=== PATIENT | male | born 1955 | race Caucasian/White ===

== ENCOUNTER 2018-11-21 00:19 | Outpatient (CLI) | payer MEDICARE, OTHER | END 2018-11-21 00:20 | disposition critical access hospital (66) | LOC: EMS 00:19 | PROVIDERS: ATTEND Surgery | DX: R10.9 Unspecified abdominal pain (principal); R14.0 Abdominal distension (gaseous); R11.0 Nausea | CPT/HCPCS: A0425; A0427 ==

== ENCOUNTER 2018-11-21 00:52 | Emergency (ER) | payer MEDICARE, OTHER ==
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
[2018-11-21 01:39] LABS: BASOPHILS # (AUTO) 0.1 10^3/uL (0.0-0.1); BASOPHILS % (AUTO) 1.3 %; EOSINOPHILS # (AUTO) 0.1 10^3/uL (0.0-0.7); HGB - HEMOGLOBIN 11.4 g/dL (14.0-18.0); MEAN CORPUSCULAR HEMOGLOBIN 31.5 pg (27.0-31.0); MEAN CORPUSCULAR HGB CONC 34.5 g/dL (32.0-36.0); MEAN CORPUSCULAR VOLUME 91.1 fL (80.0-94.0); MEAN PLATELET VOLUME 6.9 fL (7.4-11.4); MONOCYTES # (AUTO) 0.7 10^3/uL (0.0-1.0); MONOCYTES % (AUTO) 8.2 %; NEUTROPHILS # (AUTO) 6.2 10^3/uL (1.5-6.6); NEUTROPHILS % (AUTO) 77.5 %; PLT - PLATELET COUNT 304 10^3/uL (130-450); RED BLOOD COUNT 3.62 10^6/uL (4.70-6.10); RED CELL DISTRIBUTION WIDTH 14.2 % (12.0-15.0); WHITE BLOOD COUNT 8.1 x10^3/uL (4.8-10.8)
[2018-11-21 01:39] LABS: BILIRUBIN,URINE NEGATIVE (NEGATIVE); GLUCOSE, URINE (UA) NEGATIVE (NEGATIVE); KETONES,URINE (UA) NEGATIVE (NEGATIVE); LEUKOCYTE ESTERASE, URINE LARGE (NEGATIVE); NITRITE,URINE NEGATIVE (NEGATIVE); OCCULT BLOOD,URINE SMALL (NEGATIVE); PH,URINE 6.5 PH (5.0-7.5); PROTEIN,URINE NEGATIVE (NEGATIVE); UROBILINOGEN,URINE 0.2 (NORMAL) E.U./dL (NORMAL)
[2018-11-21 01:40] LABS: CLARITY,URINE HAZY (CLEAR)
[2018-11-21] MEDS ORDERED: SODIUM CHLORIDE 0.9% 1,000 ML IV STA (01:44)
[2018-11-21] MEDS ORDERED: HYDROmorphone 1 MG/ML CARPUJECT IVP STA ×2 (01:44→05:23)
[2018-11-21 01:46] LABS: BACTERIA,URINE Many /HPF (None Seen); SQUAMOUS EPITHELIAL CELL,UR RARE Squamous (<= Few)
[2018-11-21 01:49] LABS: ALBUMIN 3.4 g/dL (3.2-5.5); ALBUMIN/GLOBULIN RATIO 1.2 (1.0-2.2); BILIRUBIN,TOTAL 0.6 mg/dL (0.2-1.0); CALCIUM 8.3 mg/dL (8.5-10.3); CREATININE 0.6 mg/dL (0.6-1.2); TOTAL PROTEIN 6.3 g/dL (6.7-8.2)
[2018-11-21] MEDS ORDERED: IOVERSOL 320 50 ML VIAL ONE (02:16)
[2018-11-21] MEDS ORDERED: IOVERSOL 320 100 ML VIAL IVP ONE ×2 (02:17→03:44)
[2018-11-21] MEDS ORDERED: IOVERSOL 320 50 ML VIAL PO ONE (03:14)
--- NOTE | 2018-11-21 03:53 | CT Report ---
Reason: abd. pain, distention Procedure Date: 11/21/2018 Accession Number: [id number] / [id number] Procedure: CT - Abdomen/Pelvis W CPT Code: FULL RESULT: EXAM: CT ABDOMEN AND PELVIS EXAM DATE: 11/21/2018 03:28 AM. CLINICAL HISTORY: Abd. pain, distention. COMPARISONS: None. TECHNIQUE: Routine helical CT imaging was performed through the abdomen and pelvis. IV contrast: 50 ML OPTIRAY 320. Enteric contrast: Yes. Reconstructions: Coronal and sagittal. In accordance with CT protocol optimization, one or more of the following dose reduction techniques were utilized for this exam: automated exposure control, adjustment of mA and/or KV based on patient size, or use of iterative reconstructive technique. FINDINGS: Lung Bases: Small right effusion and bibasilar atelectasis. Liver: Normal. No masses. Gallbladder/Bile Ducts: Unremarkable. Spleen: Normal. Pancreas: Normal. Adrenal Glands: Normal. Kidneys: Normal. No masses or hydronephrosis. Peritoneal Cavity/Bowel: Mild inflammatory changes in the mesentery. No small bowel dilatation. Large amount of stool and gas in the majority of the colon. No evidence of mass. The appendix is well visualized and normal. Pelvic Organs: Suprapubic bladder catheter in place. No pelvic adenopathy or free fluid. Vasculature: Atherosclerotic calcifications. No aneurysm. Bones: Degenerative changes. Other: None. IMPRESSION: Large amount of gas and stool in the colon. No evidence of mechanical obstruction or perforation. Suprapubic bladder catheter in place. RAD[facility]
[2018-11-21] MEDS ORDERED: MAGNESIUM CITRATE 296 ML BOTTLE PO STA (05:05)
[2018-11-21] MEDS ORDERED: MINERAL OIL ENEMA 133 ML BOTTLE RC STA (05:06)
[2018-11-21 13:52] VITALS: BP 154/88
== END 2018-11-21 13:53 | disposition home or self-care (01) ==
LOC: ED 00:52
DX: K59.00 Constipation, unspecified (principal); G82.50 Quadriplegia, unspecified; Z96.0 Presence of urogenital implants
CPT/HCPCS: 36415; 74177; 80053; 81001; 83690; 85025; 87086; 87181; 96361; 96374; 96376; 99282; 99284; A9270; J1170; Q9967; 81003

== ENCOUNTER 2018-11-21 13:44 | Outpatient (CLI) | payer MEDICARE | END 2018-11-21 13:45 | disposition home or self-care (01) | LOC: EMS 13:44 | PROVIDERS: ATTEND Surgery | DX: R10.9 Unspecified abdominal pain (principal); G82.50 Quadriplegia, unspecified | CPT/HCPCS: A0425; A0428 ==